=== PATIENT | female | born 2000 | race Caucasian/White ===

== ENCOUNTER 2023-07-24 15:11 | Outpatient (REF) | payer MEDICAID, SELFPAY ==
[2023-07-24 16:24] LABS: MANUAL DIFF FLAG NO
[2023-07-24 16:26] LABS: Basophils Percent Auto 0.4 % (0-2); Eosinophils Absolute Auto 0.1 X10*3/uL (0.0-0.4); Eosinophils Percent Auto 0.5 % (0-4); Hematocrit 30.8 % (37.0-47.0); Hemoglobin 9.2 g/dl (12.0-16.0); Imm Gran Abs Auto 0.04 X10*3/uL (0.00-0.03); Imm Gran Pct Auto 0.4 % (0.0-0.4); Lymphocytes Absolute Auto 1.6 X10*3/uL (1.2-4.9); Lymphocytes Percent Auto 15.8 % (20-40); Mean Corpuscular HGB Conc 29.9 g/dl (31.0-35.0); Mean Corpuscular Hemoglobin 22.3 pg (27.0-33.0); Mean Corpuscular Volume 74.8 fL (80.0-98.0); Monocytes Absolute Auto 0.9 X10*3/uL (0.1-1.2); Monocytes Percent Auto 9.2 % (2-11); Neutrophils Absolute Auto 7.4 x10*3/uL (2.0-8.3); Neutrophils Percent Auto 73.7 % (45-73); Platelet Count 348 X10*3/uL (160-400); Red Blood Count 4.12 X10*6/uL (4.20-5.50)
[2023-07-24 17:00] LABS: Anion Gap 11 (12-20); Blood Urea Nitrogen 6 mg/dL (9-16); Calcium 9.5 mg/dL (8.4-10.2); Carbon Dioxide 23 mmol/L (22-29); Chloride 106 mmol/L (96-108); Estimated Glomerular Filt Rate > 60; Glucose Random 73 mg/dL (60-115); Potassium 3.9 mmol/L (3.3-5.1); Sodium 136 mmol/L (135-145)
[2023-07-24 17:17] LABS: TSH reflex Free T4 0.42 uIU/mL (0.32-4.0)
[2023-07-25 08:45] LABS: Syphilis Screen Nonreactive (Nonreactive)
== END 2023-07-24 15:12 | disposition home or self-care (01) ==
LOC: HO.HHCL 15:11
PROVIDERS: Visit Provider Internal Medicine
DX: Z34.91 Encounter for supervision of normal pregnancy, unspecified, first trimester (principal); Z3A.01 Less than 8 weeks gestation of pregnancy
CPT/HCPCS: 36415; 80048; 84443; 85025; 86780